=== PATIENT | male | born 1970 | race Hispanic/Latino ===

== ENCOUNTER → 2017-10-27 | Outpatient (CLI) | payer OTHER ==
[~2017-10-27] MED LIST: CONRAY-43 43% 50ML VIAL (Q9960) As Ordered ONE; PROHANCE 279.3MG/ML 5ML VIAL (A9576) As Ordered ONE
--- NOTE | 2017-10-27 10:28 | REP ---
MR arthrography right shoulder: with pre and post intra-articular gadolinium enhanced saline injected imaging: History: Pain, status post arthroscopic debridement of the partial-thickness tear of the subscapularis tendon, repair subacromial decompression and acromioplasty, and subpectoral biceps tenodesis in 2014. Recurrent and persistent pain despite physical therapy. Technique: The injection procedure is performed and dictated separately. Pre and post intra-articular gadolinium enhanced saline injected imaging is acquired. Imaging planes include axial, oblique coronal, oblique sagittal and ABER projection images. T1 T2-weighted scans are included with and without fat saturation. MRI findings: There is an area of magnetic field susceptibility artifact in the humeral head laterally from a metallic orthopedic anchor. This is visible on fluoroscopic images taken at the time of the injection procedure. There is another linear anchor tract in the superolateral humeral head and possibly a third consistent with nonopaque or nonmetallic anchors. Cortical and medullary bone signal intensity are otherwise normal. There is mild osteoarthritic hypertrophy of the acromioclavicular joint. No visible acromion process spurring is seen. There is diffuse increased signal intensity and slight thickening of the supraspinatus tendon consistent with tendonitis tendinosis. No focal full-thickness tear is seen. There is some linear T2 fluid signal in the distal supraspinatus tendon consistent with partial cuff tear. No significant glenohumeral joint effusion is seen. Post injection imaging shows good filling and enhancement of the right glenohumeral articulation. There is some injection artifact in the anterior aspect of the deltoid muscles. Oblique coronal T1 weighted post injection imaging shows contrast enhancement and some distension of the subacromial subdeltoid bursa consistent with a full-thickness cuff tear. This appears to be at approximately 10 to 11 o'clock on the humeral head on oblique coronal T1-weighted scans where the tendon shows some attenuation and micro metallic field susceptibility artifact. The superior cartilaginous labrum is somewhat small and some contrast enhanced saline appears to undermine it. No loose body is seen. ABER images show no evidence of anterior labral tear. Pre injection and post injection images show diffuse thickening and some increased signal intensity in the biceps tendon consistent with biceps tendonitis tendinosis. There is similarly some thickening and subtle increased signal intensity in the subscapularis tendon. Infraspinatus tendon is unremarkable. Impression: 1. Postoperative changes. 2. On post injection images these subacromial subdeltoid bursal is enhanced consistent with full-thickness supraspinatus tear. There is tendinosis change also noted in the subscapularis and biceps tendons. Signed by Harsh Shaw MD 10/27/2017 11:19 A
--- NOTE | 2017-10-27 15:23 | REP ---
Procedure: Right shoulder arthrogram The procedure was performed under the personal supervision of Dr. Shaw. History: Right shoulder pain The benefits and risks including but not limited to pain, infection, bleeding and anaphylaxis were explained to the patient and informed consent was obtained. Technique: The right glenohumeral joint space was localized using fluoroscopic guidance. The skin was prepped and draped in a sterile fashion. 1% lidocaine was used as a local anesthetic. Using fluoroscopic guidance a 22 gauge spinal needle was inserted and advanced into the joint. 2 ml of Conray 43 was injected to verify placement. 11 ml of a solution containing 20 ml of sterile saline and 0.15 ml of ProHance was injected into the joint. The needle was removed and the patient was taken to MRI for postprocedural imaging. The the patient tolerated the procedure well and there were no immediate complications. 0.1 minutes of fluoro time was utilized for this procedure. Reviewed by VICK Joseph 10/27/2017 01:53 PSigned by Harsh Shaw MD 10/27/2017 03:13 P
== END ==
LOC: M RADPRO 07:02
PROVIDERS: ATTEND Family Medicine
DX: M25.511 Pain in right shoulder (principal)
CPT/HCPCS: 23350; 73223; 77002; A9576; Q9960

== ENCOUNTER → 2019-03-21 | Outpatient (REF) | payer OTHER | LOC: M LAB REF 13:38 | PROVIDERS: ATTEND Nurse Practitioner Family | DX: H91.92 Unspecified hearing loss, left ear (principal) ==

== ENCOUNTER → 2019-12-15 | Outpatient (CLI) | payer OTHER ==
--- NOTE | 2019-12-16 12:01 | REP ---
MRI cervical spine without contrast: History: Cervical spondylosis. Left arm and hand tingling and numbness. Rule out disc herniation or stenosis. Technique: Sagittal and axial T1 and T2-weighted scans are acquired in the usual fashion with and without fat saturation. Sequences include spin echo, turbo spin-echo, and STIR imaging sequences. MRI findings: Cervical vertebral body heights are preserved. Alignment is normal. Cortical and medullary bone signal intensity are normal in vertebral bodies. The cervical cord is normal in coarse, caliber and signal intensity on T1 and T2-weighted scans. At C2-C3, there is minimal central disc bulging. At C3-C4, there is a small central focal disc protrusion effacing the ventral subarachnoid space. No cord compression is seen. This does appear to contact the ventral margin of the cord. Neural foramina are adequate. At C4-C5, there is mild disc space narrowing and a right posterior disc protrusion is seen with discogenic spurring. There is mild right-sided uncovertebral spurring at C4-5. This flattens the right ventral margin of the cervical cord slightly. At the C5-C6 disc level there is disc space narrowing as well. Diffuse broad-based disc bulging is seen with early osteophytic ridging. Mild bilateral uncovertebral spurring is present at C5-6. No central canal stenosis is seen. Slight flattening of the ventral margin of the cord is seen. At C6-C7, there is diffuse disc bulging and posterior osteophytic ridging. There is fairly prominent left-sided C6-7 uncovertebral spurring and neural foraminal narrowing. A small foraminal disc protrusion is suspected. There is mild right-sided uncovertebral spurring as well. At C7-T1, there is no significant finding. Impression: Degenerative spondylosis changes as above. There is fairly prominent uncovertebral spurring and foraminal narrowing on the left at C6-7. Bilateral uncovertebral spurring mild in degree is seen at C5-6. There is a right posterior disc protrusion at C4-5 and a small central disc protrusion is seen at C3-4. Electronically Signed by Harsh Shaw MD 12/16/2019 12:35 P
== END ==
LOC: M PLARAD 15:16
PROVIDERS: ATTEND Orthopaedic Surgery
DX: M47.892 Other spondylosis, cervical region (principal)

== ENCOUNTER → 2020-05-09 | Outpatient (CLI) | payer OTHER | LOC: M LABSMTC 12:55 | PROVIDERS: ATTEND Family Medicine | DX: Z03.818 Encounter for observation for suspected exposure to other biological agents ruled out (principal); Z11.59 Encounter for screening for other viral diseases | CPT/HCPCS: C9803; U0003 ==

== ENCOUNTER → 2020-11-08 | Outpatient (CLI) | payer SELFPAY | LOC: M LABSMTC 09:47 | PROVIDERS: ATTEND Pediatrics | DX: Z20.828 Contact with and (suspected) exposure to other viral communicable diseases (principal) ==

== ENCOUNTER → 2020-11-27 | Outpatient (CLI) | payer OTHER ==
[~2020-11-27] MED LIST changes: -CONRAY-43 43% 50ML VIAL (Q9960) As Ordered ONE; +KP F1200 PO; +MULT-40 PO; +OMEP-218 PO; -PROHANCE 279.3MG/ML 5ML VIAL (A9576) As Ordered ONE
== END ==
LOC: M LABSMTC 12:19
PROVIDERS: ATTEND Anesthesiology
DX: Z01.812 Encounter for preprocedural laboratory examination (principal); Z20.828 Contact with and (suspected) exposure to other viral communicable diseases

== ENCOUNTER 2020-12-02 10:26 | Day surgery (SDC) | payer OTHER ==
[~2020-12-02] VITALS: Ht 165.1 cm; Wt 85.3 kg
[~2020-12-02 10:26] MED LIST changes: +LIDOCAINE 2% 100MG/5ML SDV (FOR ANES.) As Ordered ONE; +NS 1,000 ML IV ONE; +fentaNYL 100 MCG/2 ML INJECTION (J3010) As Ordered ONE; +propofoL 200 MG/20 ML VIAL As Ordered ONE
--- NOTE | 2020-12-02 11:16 | ROOR ---
Patient Name: Marcelo Funes Procedure Date: 12/02/2020 11:01 AM Date of : 1970 Age: 50 Room: [facility] Gender: Male Note Status: Finalized Procedure: Upper Endoscopy + Biopsies Indications: Heartburn, Exclusion of Rm's esophagus Providers: Tye Cabral MD Referring MD: Steve Alonso MD Requesting Provider: Medicines: Monitored Anesthesia Care Complications: No immediate complications. Procedure: Pre-Anesthesia Assessment: - The heart rate, respiratory rate, oxygen saturations, blood pressure, adequacy of pulmonary ventilation, and response to care were monitored throughout the procedure. The Endoscope was introduced through the mouth, and advanced to the second part of duodenum. The upper GI endoscopy was accomplished without difficulty. The patient tolerated the procedure well. Findings: The Z-line was irregular and was found 35 cm from the incisors. Multiple biopsies were obtained with cold forceps for evaluation to rule out Rm's Esophagus randomly at the gastroesophageal junction. A small hiatal hernia was present. No other significant abnormalities were identified in a careful examination of the stomach. The exam of the duodenum was otherwise normal. Impression: - Z-line irregular, 35 cm from the incisors. - Small hiatal hernia. - Multiple biopsies were obtained at the gastroesophageal junction. - The examination was otherwise normal. Recommendation: - Patient has a contact number available for emergencies. The signs and symptoms of potential delayed complications were discussed with the patient. Return to normal activities tomorrow. Written discharge instructions were provided to the patient. - High fiber diet. - Discharge patient to home. - Follow an antireflux regimen. - Continue present medications. - Await pathology results. - Telephone GI clinic for pathology results in 1 week. - Return to referring physician. - The findings and recommendations were discussed with the patient. Procedure Code(s): --- Professional --- 54925, Esophagogastroduodenoscopy, flexible, transoral; with biopsy, single or multiple Diagnosis Code(s): --- Professional --- K22.8, Other specified diseases of esophagus K44.9, Diaphragmatic hernia without obstruction or gangrene R12, Heartburn CPT copyright 2019 [employer]. All rights reserved. The codes documented in this report are preliminary and upon director risk review may be revised to meet current compliance requirements. Tye Cabral MD Tye Cabral MD 12/02/2020 11:16:29 AM Electronically signed by Tye Cabral MD Number of Addenda: 0 Note Initiated On: 12/02/2020 11:01 AM Estimated Blood Loss: Estimated blood loss: none.
--- NOTE | 2020-12-02 11:29 | ROOR ---
Patient Name: Marcelo Funes Procedure Date: 12/02/2020 11:02 AM Date of : 1970 Age: 50 Room: [facility] Gender: Male Note Status: Finalized Procedure: Total Colonoscopy to Cecum + ileoscopy Indications: Screening for colorectal malignant neoplasm Providers: Tye Cabral MD Referring MD: Steve Alonso MD Requesting Provider: Medicines: Monitored Anesthesia Care Complications: No immediate complications. Procedure: Pre-Anesthesia Assessment: - The heart rate, respiratory rate, oxygen saturations, blood pressure, adequacy of pulmonary ventilation, and response to care were monitored throughout the procedure. The Colonoscope was introduced through the anus and advanced to the terminal ileum, with identification of the appendiceal orifice and IC valve. The colonoscopy was performed without difficulty. The patient tolerated the procedure well. The quality of the bowel preparation was excellent. Findings: The perianal and digital rectal examinations were normal. The exam was otherwise without abnormality on direct and retroflexion views. The terminal ileum appeared normal. The exam was otherwise without abnormality. Impression: - The examination was otherwise normal on direct and retroflexion views. - The examined portion of the ileum was normal. - The examination was otherwise normal. - No specimens collected. - The exam was otherwise normal to the cecum. Recommendation: - Patient has a contact number available for emergencies. The signs and symptoms of potential delayed complications were discussed with the patient. Return to normal activities tomorrow. Written discharge instructions were provided to the patient. - High fiber diet. - Discharge patient to home. - Continue present medications. - Repeat colonoscopy in 10 years for screening purposes. - Return to referring physician. - The findings and recommendations were discussed with the patient. Procedure Code(s): --- Professional --- 15529, Colonoscopy, flexible; diagnostic, including collection of specimen(s) by brushing or washing, when performed (separate procedure) Diagnosis Code(s): --- Professional --- Z12.11, Encounter for screening for malignant neoplasm of colon CPT copyright 2019 [employer]. All rights reserved. The codes documented in this report are preliminary and upon acquisitions analyst review may be revised to meet current compliance requirements. Tye Cabral MD Tye Cabral MD 12/02/2020 11:29:34 AM Electronically signed by Tye Cabral MD Number of Addenda: 0 Note Initiated On: 12/02/2020 11:02 AM Estimated Blood Loss: Estimated blood loss: none.
[2020-12-02 11:55] VITALS: BP 163/71
== END 2020-12-02 12:25 | disposition home or self-care (01) ==
LOC: M OPP 10:26
PROVIDERS: ATTEND Internal Medicine Gastroenterology
DX: Z12.11 Encounter for screening for malignant neoplasm of colon (principal); R12 Heartburn; K22.8 Other specified diseases of esophagus; K44.9 Diaphragmatic hernia without obstruction or gangrene
CPT/HCPCS: 43239; 88305; G0121; J3010

== ENCOUNTER → 2021-11-24 | Outpatient (REF) ==
[~2021-11-24] MED LIST changes: -LIDOCAINE 2% 100MG/5ML SDV (FOR ANES.) As Ordered ONE; -NS 1,000 ML IV ONE; +OMEP-173 PO; -OMEP-218 PO; -fentaNYL 100 MCG/2 ML INJECTION (J3010) As Ordered ONE; -propofoL 200 MG/20 ML VIAL As Ordered ONE
== END ==
LOC: M LABSMTC 12:01
PROVIDERS: ATTEND Pediatrics
DX: Z20.822 Contact with and (suspected) exposure to COVID-19 (principal)

== ENCOUNTER → 2023-01-28 | Outpatient (REF) | payer OTHER ==
[2023-01-28 18:24] LABS: TOTAL IRON BINDING CAPACITY 321 UG/DL (250-425)
[2023-01-28 18:26] LABS: IRON (FE) 71 UG/DL (65-175); PERCENT SATURATION 22.1 % (19.7-50.0)
[2023-01-28 18:29] LABS: ALBUMIN 4.5 G/DL (3.2-5.2); ALKALINE PHOSPHATASE 105 U/L (46-116); ALT/SGPT 50 U/L (7.0-40); AST/SGOT 43 U/L (<34); BILIRUBIN,DIRECT 0.3 MG/DL (<0.4); BILIRUBIN,TOTAL 1.2 MG/DL (0.3-1.2); FERRITIN 175.2 NG/ML (10.5-307.3); THYROID STIMULATING HORMONE 2.633 uIU/ML (0.55-4.78); TOTAL PROTEIN 7.6 G/DL (5.7-8.2)
[2023-01-28 18:32] LABS: HEPATITIS B SURFACE ANTIBODY POSITIVE (POSITIVE)
[2023-01-28 18:44] LABS: HEPATITIS B SURFACE ANTIGEN NEGATIVE (NEGATIVE)
== END ==
LOC: M LAB REF 16:20
PROVIDERS: ATTEND Internal Medicine Gastroenterology
DX: R94.5 Abnormal results of liver function studies (principal); K21.9 Gastro-esophageal reflux disease without esophagitis; K76.0 Fatty (change of) liver, not elsewhere classified

== ENCOUNTER → 2023-03-18 | Outpatient (CLI) | payer OTHER | LOC: M RAD 08:07 | PROVIDERS: ATTEND Internal Medicine Gastroenterology | DX: R94.5 Abnormal results of liver function studies (principal); K21.9 Gastro-esophageal reflux disease without esophagitis; K76.0 Fatty (change of) liver, not elsewhere classified ==

== ENCOUNTER → 2023-04-21 | Outpatient (CLI) | payer OTHER | LOC: M PLAIMG 10:56 | PROVIDERS: ATTEND Physician Assistant | DX: M48.02 Spinal stenosis, cervical region (principal) ==

== ENCOUNTER → 2024-03-20 | Outpatient (CLI) | payer OTHER | LOC: M RAD 07:30 | PROVIDERS: ATTEND Physician Assistant | DX: R94.5 Abnormal results of liver function studies (principal) ==

== ENCOUNTER → 2024-09-29 | Outpatient (CLI) | payer OTHER | LOC: M WUC 10:52 | PROVIDERS: ATTEND Family Medicine | DX: R05.9 Cough, unspecified (principal) ==

== ENCOUNTER → 2025-01-17 | Outpatient (REF) | payer OTHER | LOC: M LAB REF 16:25 | PROVIDERS: ATTEND Family Medicine | DX: R74.01 Elevation of levels of liver transaminase levels (principal) ==

== ENCOUNTER → 2025-03-13 | Outpatient (CLI) | payer OTHER | LOC: M RAD 07:53 | PROVIDERS: ATTEND Internal Medicine | DX: K76.0 Fatty (change of) liver, not elsewhere classified (principal); K21.9 Gastro-esophageal reflux disease without esophagitis; E66.9 Obesity, unspecified ==